=== PATIENT | female | born 1965 | race Caucasian/White ===

== ENCOUNTER → 2019-07-29 | Outpatient (CLI) | payer BC ==
[~2019-07-29] MED LIST: BIOT25005 PO; CHOL10003 PO; CYAN1TAB29 PO; denies
[2019-07-29 16:27] LABS: HCG UR SG 1.014 (1.003-1.030); MICROSCOPIC NOT IND
[2019-07-29 16:28] LABS: CULTURE INDICATED? NO
[2019-07-29 16:33] LABS: BASOPHILS # (AUTO) 0.03 x10^3/uL (0-0.1); BASOPHILS % (AUTO) 1 % (0-1); EOSINOPHILS # (AUTO) 0.04 x10^3/uL (0-0.4); EOSINOPHILS % (AUTO) 1 % (1-7); LYMPHOCYTES # (AUTO) 1.07 x10^3/uL (1-3.4); LYMPHOCYTES % (AUTO) 25 % (22-44); MD NO; MEAN CORPUSCULAR HEMOGLOBIN 31.9 pg (27.0-34.8); MEAN CORPUSCULAR HGB CONC 33.3 g/dL (32.4-35.8); MEAN CORPUSCULAR VOLUME 95.7 fL (80-100); MEAN PLATELET VOLUME 8.6 fL (7.4-10.4); MONOCYTES # (AUTO) 0.65 x10^3/uL (0.2-0.8); MONOCYTES % (AUTO) 15 % (2-9); NEUTROPHILS # (AUTO) 2.49 x10^3/uL (1.8-6.8); NEUTROPHILS % (AUTO) 58 % (42-75); PLATELET COUNT 171 x10^3/uL (130-400); RED BLOOD COUNT 3.88 x10^6/uL (3.82-5.3); RED CELL DISTRIBUTION WIDTH 13.1 % (9.6-15.2)
== END | disposition home or self-care (01) ==
LOC: STAR 15:31
PROVIDERS: ATTEND Obstetrics & Gynecology
DX: Z01.818 Encounter for other preprocedural examination (principal)
CPT/HCPCS: 36415; 81003; 81025; 85025; 93005

== ENCOUNTER 2019-08-12 05:48 | Day surgery (SDC) | payer BC, OTHER ==
[~2019-08-12] VITALS: Ht 160 cm; Wt 52.0 kg
[2019-08-12] MEDS ORDERED: LACTATED RINGERS 1,000 ML IV SCH (06:29)
[2019-08-12] MEDS ORDERED: BUPIVACAINE/PF 0.25% ONE (06:39)
[2019-08-12] MEDS ORDERED: EPINEPHRINE 1 MG/ML, 1ML ONE (06:39)
[2019-08-12 06:50] LABS: HCG UR SG 1.024 (1.003-1.030)
[2019-08-12] MEDS ORDERED: OxyconTIN ER 10 MG TAB.ER PO ONE (07:00)
[2019-08-12] MEDS ORDERED: ACETAMINOPHEN 500 MG TABLET PO ONE (07:00)
[2019-08-12] MEDS ORDERED: FENTANYL PF 250 MCG/5ML ONE (07:17)
[2019-08-12] MEDS ORDERED: MIDAZOLAM 1 MG/ML, 2ML ONE (07:17)
[2019-08-12] MEDS ORDERED: DEXAMETHASONE 4 MG/ML, 1ML ONE (07:18)
[2019-08-12] MEDS ORDERED: CEFAZOLIN 1,000 MG ONE (07:18)
[2019-08-12] MEDS ORDERED: PROPOFOL 10 MG/ML, 20ML ONE (07:18)
[2019-08-12] MEDS ORDERED: ONDANSETRON 2MG/ML, 2ML ONE (07:19)
[2019-08-12] MEDS ORDERED: SILVER NITRATE STICK TP ONE (07:48)
[2019-08-12] MEDS ORDERED: MEPERIDINE/PF 25MG/ML,1ML IVPush PRN (08:00)
[2019-08-12] MEDS ORDERED: ONDANSETRON 2MG/ML, 2ML IV PRN (08:00)
[2019-08-12] MEDS ORDERED: PROMETHAZINE 12.5 MG SUPP PR PRN (08:00)
[2019-08-12] MEDS ORDERED: MIDAZOLAM 1 MG/ML, 2ML IV PRN (08:00)
[2019-08-12] MEDS ORDERED: hydrALAzine 20 MG/ML, 1ML IV PRN (08:00)
[2019-08-12] MEDS ORDERED: EPHEDRINE 50 MG/ML, 1ML IVPush PRN (08:00)
[2019-08-12] MEDS ORDERED: OXYcodone 5 MG/5 ML ORAL.SOL UDC PO PRN (08:00)
[2019-08-12] MEDS ORDERED: LABETALOL 5MG/ML, 20ML IV PRN (08:00)
[2019-08-12] MEDS ORDERED: ALBUTEROL SULFATE 2.5 MG/3 ML NPPB PRN (08:00)
[2019-08-12] MEDS ORDERED: FENTANYL PF 100 MCG/2ML IV PRN (08:00)
[2019-08-12] MEDS ORDERED: PROMETHAZINE 25 MG/ML, 1ML IV PRN (08:00)
[2019-08-12] MEDS ORDERED: HYDROmorphone 2 MG/ML, 1ML IVPush PRN (08:00)
[2019-08-12] MEDS ORDERED: ONDANSETRON ODT 8 MG PO PRN (08:00)
[2019-08-12] MEDS ORDERED: DIAZEPAM 5 MG/ML, 2ML IVPush PRN (08:00)
[2019-08-12] MEDS ORDERED: HALOPERIDOL 5 MG/ML IV PRN (08:00)
[2019-08-12] MEDS ORDERED: MEPERIDINE/PF 25MG/ML,1ML ONE (08:27)
== END 2019-08-12 10:20 | disposition home or self-care (01) ==
LOC: OUT 05:48
PROVIDERS: ATTEND Obstetrics & Gynecology
DX: N92.0 Excessive and frequent menstruation with regular cycle (principal); N94.6 Dysmenorrhea, unspecified; D25.9 Leiomyoma of uterus, unspecified; Z79.899 Other long term (current) drug therapy; Z85.3 Personal history of malignant neoplasm of breast; Z91.018 Allergy to other foods; Z90.13 Acquired absence of bilateral breasts and nipples; Z98.890 Other specified postprocedural states; Z80.41 Family history of malignant neoplasm of ovary
CPT/HCPCS: 58563; 81025; J0171; J0690; J1100; J2175; J2250; J2405; J2704; J3010; J3490; J7120